=== PATIENT | female | born 1985 | race Caucasian/White ===

== ENCOUNTER 2017-06-30 10:09 | Emergency (ER) | payer SELFPAY ==
--- NOTE | 2017-06-30 10:26 | ER Document Report ---
ED Medical Screen (RME) - General Chief Complaint: Abdominal Pain Stated Complaint: ABDOMINAL PAIN Time Seen by Provider: 06/30/17 10:25 Notes: pt reports several months of intermittent abd pain, mainly in LLQ. also states she has "yeast" infection. only surgery is tubal, no chronic medical conditions. TRAVEL OUTSIDE OF THE [place] IN LAST 30 DAYS: No - Related Data Allergies/Adverse Reactions: acetaminophen [From Percocet] Allergy (Verified 06/30/17 10:16) oxycodone [From Percocet] Allergy (Verified 06/30/17 10:16) Past Medical History - Social History Frequency of alcohol use: Occasional Drug Abuse: None Renal/ Medical History: Denies: Hx Peritoneal Dialysis Physical Exam - Vital signs Vitals: Temp Pulse Resp BP Pulse Ox 98.7 F 97 16 128/90 H 98 06/30/17 10:16 06/30/17 10:16 06/30/17 10:16 06/30/17 10:16 06/30/17 10:16 Course - Vital Signs Vital signs: Temp Pulse Resp BP Pulse Ox 98.7 F 97 16 128/90 H 98 06/30/17 10:16 06/30/17 10:16 06/30/17 10:16 06/30/17 10:16 06/30/17 10:16
--- NOTE | 2017-06-30 10:50 | ER Document Report ---
ED GI/ - General Chief Complaint: Abdominal Pain Stated Complaint: ABDOMINAL PAIN Time Seen by Provider: 06/30/17 10:25 Notes: 31 yo female c/o intermittant LLQ pain for several months. denies dysuria. + thick white vaginal discharge with slight vaginal itch. no odor. no fever or back pain TRAVEL OUTSIDE OF THE [place] IN LAST 30 DAYS: No - HPI Patient complains to provider of: Pelvic pain Timing/Duration: Intermittent - Related Data Allergies/Adverse Reactions: acetaminophen [From Percocet] Allergy (Verified 06/30/17 10:16) oxycodone [From Percocet] Allergy (Verified 06/30/17 10:16) Past Medical History - General Information source: Patient - Social History Smoking Status: Current Every Day Smoker Frequency of alcohol use: Occasional Drug Abuse: None Family History: Reviewed & Not Pertinent Patient has suicidal ideation: No Patient has homicidal ideation: No - Medical History Medical History: Negative Renal/ Medical History: Denies: Hx Peritoneal Dialysis Review of Systems - Review of Systems Constitutional: No symptoms reported EENT: No symptoms reported Cardiovascular: No symptoms reported Respiratory: No symptoms reported Gastrointestinal: See HPI, Abdominal pain Genitourinary: No symptoms reported Female Genitourinary: No symptoms reported Musculoskeletal: No symptoms reported Skin: No symptoms reported Hematologic/Lymphatic: No symptoms reported Neurological/Psychological: No symptoms reported Physical Exam - Vital signs Vitals: Temp Pulse Resp BP Pulse Ox 98.7 F 97 16 128/90 H 98 06/30/17 10:16 06/30/17 10:16 06/30/17 10:16 06/30/17 10:16 06/30/17 10:16 Interpretation: Normal - General General appearance: Appears well, Alert - HEENT Head: Normocephalic, Atraumatic Eyes: Normal Pupils: PERRL - Respiratory Respiratory status: No respiratory distress Chest status: Nontender Breath sounds: Normal Chest palpation: Normal - Cardiovascular Rhythm: Regular Heart sounds: Normal auscultation Murmur: No - Abdominal Inspection: Normal Distension: No distension Bowel sounds: Normal Tenderness: Tender - LLQ tenderness. no guarding or rebound Organomegaly: No organomegaly - Back Back: Normal, Nontender - Extremities General upper extremity: Normal inspection, Nontender, Normal color, Normal ROM , Normal temperature General lower extremity: Normal inspection, Nontender, Normal color, Normal ROM , Normal temperature, Normal weight bearing. No: Damir's sign - Neurological Neuro grossly intact: Yes Cognition: Normal Orientation: AAOx4 [place] Coma Scale Eye Opening: Spontaneous Lam Coma Scale Verbal: Oriented [place] Coma Scale Motor: Obeys Commands Lam Coma Scale Total: 15 Speech: Normal Motor strength normal: LUE, RUE, LLE, RLE Sensory: Normal - Psychological Associated symptoms: Normal affect, Normal mood - Skin Skin Temperature: Warm Skin Moisture: Dry Skin Color: Normal Course - Vital Signs Vital signs: Temp Pulse Resp BP Pulse Ox 98.7 F 97 16 128/90 H 98 06/30/17 10:16 06/30/17 10:16 06/30/17 10:16 06/30/17 10:16 06/30/17 10:16 Discharge - Discharge Clinical Impression: Pelvic pain, Left lower quadrant pain Condition: Stable Disposition: HOME, SELF-CARE Instructions: Ovarian Cyst ([facility]), Ibuprofen (General) ([facility]), Vaginosis, Bacterial ([facility]), Antibiotic Therapy ([facility]), Vaginal Yeast Infection ([facility]) Additional Instructions: Your wet mount is showing Bacterial Vaginosis and yeast Take medications as prescribed Your history and physical is suspicious for ovarian cysts Follow up with [facility] for further evaluation and treatment Prescriptions: Fluconazole [Diflucan] 150 mg PO ONCE PRN #2 tablet PRN Reason: Ibuprofen [Motrin 800 Mg Tablet] 800 mg PO Q6H #20 tablet Metronidazole [Flagyl 500 mg Tablet] 500 mg PO BID #14 tablet Referrals: [facility] DEPT,[facility] [NO LOCAL MD] - Follow up as needed
[2017-06-30 11:23] LABS: APPEARANCE,URINE CLEAR; BILIRUBIN,URINE NEGATIVE (NEGATIVE); GLUCOSE, URINE NEGATIVE (NEGATIVE); KETONES,URINE NEGATIVE (NEGATIVE); LEUKOCYTE ESTERASE,URINE NEGATIVE (NEGATIVE); NITRITE,URINE NEGATIVE (NEGATIVE); PROTEIN,URINE NEGATIVE (NEGATIVE); URINE SPECIFIC GRAVITY 1.021; UROBILINOGEN,URINE NEGATIVE mg/dL (<2.0)
[2017-06-30 11:44] VITALS: BP 115/77
[2017-06-30 12:52] LABS: CHLAM PCR NOT DETECTED (NOT DETECT)
== END 2017-06-30 11:42 | disposition home or self-care (01) ==
LOC: ER 10:09
DX: R10.2 Pelvic and perineal pain (principal); R10.32 Left lower quadrant pain; R10.9 Unspecified abdominal pain; F17.200 Nicotine dependence, unspecified, uncomplicated
CPT/HCPCS: 81001; 81025; 87210; 87491; 87591; 99284

== ENCOUNTER 2018-02-22 10:44 | Emergency (ER) | payer SELFPAY ==
[2018-02-22 10:51] VITALS: BP 124/81
[2018-02-22] MEDS ORDERED: TETRACAINE HCL 0.5% OPH SOLN 2 ML OD ONE (11:01)
--- NOTE | 2018-02-22 11:02 | ER Document Report ---
HPI - HPI Patient complains to provider of: Itchy right eye Onset: Other - 3 weeks Onset/Duration: Persistent, Waxing and waning Pain Level: 1 Context: 32-year-old noncontact lens wear female complaining of itchy right eyelid for 3 weeks it is intermittent but persists. Sometimes the upper right eyelid swells after rubbing it Associated Symptoms: None Exacerbated by: Denies Relieved by: Denies - ROS ROS below otherwise negative: Yes Systems Reviewed and Negative: Yes All other systems reviewed and negative Past Medical History - General Information source: Patient - Social History Smoking Status: Never Smoker Frequency of alcohol use: None Drug Abuse: None Lives with: Family Family History: Reviewed & Not Pertinent - Medical History Medical History: Negative Renal/ Medical History: Denies: Hx Peritoneal Dialysis Surgical Hx: Negative Vertical Provider Document - CONSTITUTIONAL Agree With Documented VS: Yes Exam Limitations: No Limitations General Appearance: No Apparent Distress - INFECTION CONTROL TRAVEL OUTSIDE OF THE [place] IN LAST 30 DAYS: No - HEENT HEENT: Normal ENT Exam, Normocephalic, PERRLA. negative: Conjuctival Injection , Pharyngeal Erythema Notes: No fluoroscopy seen uptake, no conjunctival injection, no eyelid swelling. - NEURO Level of Consciousness: Awake, Alert - DERM Integumentary: No Rash Course - Vital Signs Vital signs: Temp Pulse Resp BP Pulse Ox 99.0 F 95 14 124/81 99 02/22/18 10:49 02/22/18 10:49 02/22/18 10:49 02/22/18 10:49 02/22/18 10:49 Discharge - Discharge Clinical Impression: Right eyelid pruritus Condition: Good Disposition: HOME, SELF-CARE Instructions: Conjunctivitis, Allergic Additional Instructions: See the raftsman if the eye symptoms persist Allergy eyedrops Return to the emergency room any swelling heat or fever in the area Prescriptions: Olopatadine HCl [Pataday] 1 drop OP DAILY #1 bottle Referrals: ASHELY BELLO MD [ACTIVE STAFF] - Follow up as needed
== END 2018-02-22 11:39 | disposition home or self-care (01) ==
LOC: ER 10:44
DX: L29.8 Other pruritus (principal)
CPT/HCPCS: 99283

== ENCOUNTER 2018-02-25 10:04 | Emergency (ER) | payer SELFPAY ==
[2018-02-25 10:11] VITALS: BP 130/84
--- NOTE | 2018-02-25 10:17 | ER Document Report ---
HPI - HPI Pain Level: 3 Notes: Patient is a 32-year-old female who presents to the ED complaining of continued intermittent right upper eyelid swelling 1-1/2 weeks. Patient states she was here 3 days ago and had an evaluation at that time and was diagnosed with a possible allergic issue and was prescribed allergy eyedrops, but could not afford the prescription so she came back to the emergency department. Patient states that her eyelid usually swells in the morning and solves by the afternoon. Patient states that she has not had any changes in her vision or blurriness. Patient states that on occasion she will have tearing without any purulence. She has not had any recent URI. She is eating and drinking without difficulties. No other concerns or complaints. No eye pain or sensation of foreign body. Denies any headache, fever, neck pain, eye redness, changes in vision/speech/mentation/hearing, URI, sore throat, chest pain, palpitations, syncope, cough, shortness of breath, wheeze, dyspnea, abdominal pain, nausea/ vomiting/diarrhea, urinary retention, dysuria, hematuria, or rash. - ROS Systems Reviewed and Negative: Yes All other systems reviewed and negative - CONSTITUTIONAL Constitutional: DENIES: Fever, Chills - EENT EENT: REPORTS: Eye problems - R eye swelling. DENIES: Sore Throat, Ear Pain - NEURO Neurology: DENIES: Headache, Weakness, Vision blurred, Dizzinesss / Vertigo - CARDIOVASCULAR Cardiovascular: DENIES: Chest pain - RESPIRATORY Respiratory: DENIES: Trouble Breathing, Coughing - GASTROINTESTINAL Gastrointestinal: DENIES: Abdominal Pain, Black / Bloody Stools - URINARY Urinary: DENIES: Dysuria, Urgency, Frequency - REPRODUCTIVE Reproductive: DENIES: :, Postmenopausal, Abnormal bleeding / discharge - MUSCULOSKELETAL Musculoskeletal: DENIES: Extremity pain Past Medical History - Social History Smoking Status: Current Every Day Smoker Family History: Reviewed & Not Pertinent Patient has suicidal ideation: No Patient has homicidal ideation: No Renal/ Medical History: Denies: Hx Peritoneal Dialysis Vertical Provider Document - CONSTITUTIONAL Agree With Documented VS: Yes Notes: PHYSICAL EXAMINATION: GENERAL: Well-appearing, well-nourished and in no acute distress. A&Ox4 HEAD: Atraumatic, normocephalic. EYES: Pupils equal round and reactive to light, extraocular movements intact, sclera anicteric, conjunctiva b/l w/o discharge or matting. Non-tender to palp of the globe and eye itself. + rt mild upper eyelid swelling/puffiness. + small ?stye inside upper lid rt. No other surrounding erythema or swelling noted. Visual acuity 20/20 b/l and in each eye (performed by myself at bedside with my own eye chart). Wood's lamp/flourescein: pt had performed 3 days ago, negative. no eye redness/ discharge on exam. ENT: EAC clear b/l. TM's intact b/l without erythema, fluid, or perforation. Nares patent and without discharge. oropharynx clear without exudates. No tonsilar hypertrophy or erythema. Moist mucous membranes. No sinus tenderness. Uvula midline. No palatine shift. No airway compromise. No drooling or hoarseness. NECK: Normal range of motion, supple without lymphadenopathy. No rigidity/ meningismus. LUNGS: Breath sounds clear to auscultation bilaterally and equal. No wheezes rales or rhonchi. HEART: Regular rate and rhythm without murmurs, rubs, gallops. Extremities: No cyanosis, clubbing, or edema b/l. Peripheral pulses 2+. Capillary refill less than 3 seconds. NEUROLOGICAL: Cranial nerves grossly intact. Normal speech, normal gait. Normal sensory, motor exams PSYCH: Normal mood, normal affect. SKIN: Warm, Dry, normal turgor, no rashes or lesions noted. - INFECTION CONTROL TRAVEL OUTSIDE OF THE [place] IN LAST 30 DAYS: No Course - Re-evaluation Re-evalutation: 02/25/18 10:24 Patient is an afebrile, well-hydrated, 32-year-old female presents to the ED with right upper eyelid swelling, suspect possible allergy with a possible very small stye. Vitals are acceptable. PE is otherwise unremarkable. No other labs or imaging warranted at this time based on H&P. Visual acuity is intact. Conjunctiva is noninjected and without discharge. She has no tenderness and no subjective pain. Low suspicion for any retained corneal or lid foreign body, deep space infection including orbital cellulitis/abscess, acute glaucoma, penetrating globe injury, retinal detachment, meningitis, sepsis, fracture, compartment syndrome. I will send her home with a prescription for Polytrim to use as directed. Conservative measures otherwise for symptoms with proper handwashing. Recheck with your PCM in 3-5 days. Schedule a f/u with Ophthalmology next week. Return to the ED with any worsening/concerning symptoms otherwise as reviewed in discharge. Patient is in agreement. - Vital Signs Vital signs: Temp Pulse Resp BP Pulse Ox 98.4 F 92 15 130/84 H 99 02/25/18 10:08 02/25/18 10:08 02/25/18 10:08 02/25/18 10:08 02/25/18 10:08 Discharge - Discharge Clinical Impression: Swelling of right eyelid Condition: Stable Disposition: HOME, SELF-CARE Instructions: Eyedrop Use ([facility]) Additional Instructions: keep eyes clean Take PO allergy medication as needed Avoid scratching/touching eyes Wash hands regularly Use eye drops as directed Maintain adequate fluid intake tylenol/ibuprofen as needed over the counter cold medication as needed for symptoms F/u: with your PCM in 3-5 days for a recheck Schedule a consult with Ophthalmology for further evaluation Return to the ED with any worsening symptoms and/or development of fever, headache, changes in vision, eye pain, worsening eye redness, redness around the eyes, purulent discharge, sore throat, facial swelling, neck pain/stiffness , chest pain, palpitations, syncope, shortness of breath, trouble breathing, abdominal pain, n/v/d, blood in stool/urine, dysuria, or other worsening symptoms that are concerning to you. Prescriptions: Polymyxin B Sulf/Trimethoprim [Polytrim Eye Drops] 1 drop OD Q3H #10 ml Forms: Elevated Blood Pressure, Smoking Cessation Education Referrals: ASHELY BELLO MD [ACTIVE STAFF] - Follow up in 3-5 days
== END 2018-02-25 10:22 | disposition home or self-care (01) ==
LOC: ER 10:04
DX: R22.0 Localized swelling, mass and lump, head (principal); F17.200 Nicotine dependence, unspecified, uncomplicated
CPT/HCPCS: 99283

== ENCOUNTER 2018-12-26 08:17 | Emergency (ER) | payer SELFPAY ==
[2018-12-26] MEDS ORDERED: KETOROLAC TROMETHAMINE 60 MG/2 ML SDV IM ONE (09:32)
--- NOTE | 2018-12-26 09:44 | ER Document Report ---
ED General - General Chief Complaint: Headache Stated Complaint: HEADACHE Time Seen by Provider: 12/26/18 09:26 TRAVEL OUTSIDE OF THE [place] IN LAST 30 DAYS: No - HPI Notes: Patient is a 33-year-old female that presents to the emergency department for chief complaint of headache and sinus congestion. Patient reports pressure in her face for the last 4 days. She states that it is throbbing in nature. It is worse when she is laying flat or bending forward. She reports a lot of sinus congestion and drainage as well. She has tried Mucinex at home which has given her some relief of the congestion. She is also tried Aleve and her last dose was at 1 AM. She states the Aleve does give her some relief but her symptoms have persisted. She reported blurry vision in triage but describes it as a photophobia making it difficult to see. She denies any double vision or lack of vision. She denies any fevers, chills, neck pain and stiffness, cough and shortness of breath. Her headache is gradually wo rsening over the last few days. Past Medical History: Negative Past Surgical History: Social History: Denies drugs alcohol and tobacco Family History: Reviewed and noncontributory for presenting illness Allergies: Reviewed, see documented allergy list. REVIEW OF SYSTEMS: CONSTITUTIONAL : No fever No chills No diaphoresis No recent illness EENT: No vision changes congestion No sore throat CARDIOVASCULAR: No chest pain No palpitations RESPIRATORY: No shortness of breath No cough No difficulty breathing GASTROINTESTINAL: No abdominal pain No nausea No vomiting No diarrhea GENITOURINARY: No dysuria No hematuria No difficulty urinating MUSCULOSKELETAL: No back pain No leg pain No arm pain SKIN: No rashes No lesions LYMPHATIC: No swollen, enlarged glands. NEUROLOGICAL: No lightheadedness headache No weakness No paresthesias PSYCHIATRIC: No anxiety No depression PHYSICAL EXAMINATION: Vital signs reviewed, nursing noted reviewed. GENERAL: Well-appearing, well-nourished and in no acute distress. HEAD: Atraumatic, normocephalic. EYES: Eyes appear normal, extraocular movements intact, sclera anicteric, conjunctiva are normal. ENT: Bilateral nasal mucosal edema, tenderness to percussion of frontal and maxillary sinuses, normal TMs bilaterally with clear middle ear effusions bilaterally. Nares patent, oropharynx clear without exudates. Moist mucous membranes. NECK: Normal range of motion, supple without lymphadenopathy LUNGS: Breath sounds clear to auscultation bilaterally and equal. No wheezes rales or rhonchi. HEART: Regular rate and rhythm without murmurs ABDOMEN: Soft, nontender, normoactive bowel sounds. No rebound, guarding, or rigidity. No masses appreciated. EXTREMITIES: Nontender, good range of motion, no pitting or edema. NEUROLOGICAL: No focal neurological deficits. Moves all extremities spontaneously Motor and sensory grossly intact on exam. PSYCH: Normal mood, normal affect. SKIN: Warm, Dry, normal turgor, no rashes or lesions noted on exposed skin - Related Data Allergies/Adverse Reactions: acetaminophen [From Percocet] Allergy (Verified 12/26/18 08:20) oxycodone [From Percocet] Allergy (Verified 12/26/18 08:20) Past Medical History - Social History Smoking Status: Current Every Day Smoker Chew tobacco use (# tins/day): No Frequency of alcohol use: Social Family History: Reviewed & Not Pertinent Patient has suicidal ideation: No Patient has homicidal ideation: No Renal/ Medical History: Denies: Hx Peritoneal Dialysis Physical Exam - Vital signs Vitals: Temp Pulse Resp BP Pulse Ox 98.1 F 86 16 132/89 H 97 12/26/18 08:32 12/26/18 08:32 12/26/18 08:32 12/26/18 08:32 12/26/18 08:32 Course - Re-evaluation Re-evalutation: 12/26/18 10:21 Vitals reviewed. Nursing notes reviewed. Patient has tenderness to percussion of her sinuses and pain consistent with sinus headache. Her symptoms have only been present for 4 days therefore antibiotics are not indicated. She will be started on Nasonex and was given Toradol in the ED for symptom medic management. She will follow with primary care for reevaluation in the next few days. - Vital Signs Vital signs: Temp Pulse Resp BP Pulse Ox 98.1 F 86 16 132/89 H 97 12/26/18 08:32 12/26/18 08:32 12/26/18 08:32 12/26/18 08:32 12/26/18 08:32 Discharge - Discharge Clinical Impression: Sinus headache Sinusitis Qualifiers: Sinusitis location: frontal Chronicity: acute Recurrence: non-recurrent Qualified Code(s): J01.10 - Acute frontal sinusitis, unspecified Condition: Stable Disposition: HOME, SELF-CARE Instructions: Toradol Injection ([facility]), Sinusitis ([facility]), Headache ([facility]) Additional Instructions: Please return to the emergency department if you have any worsening, or concern of your symptoms. Please return to the emergency department if you develop chest pain, difficulty breathing, severe abdominal pain, or ongoing vomiting. Please follow-up with your primary care physician in 2-3 days and any other recommended physicians. If prescribed, take all medications as directed. If you have any questions or concerns do not hesitate to return the emergency department for evaluation. Prescriptions: Mometasone Furoate [Nasonex] 2 spray NS Q12 14 Days #1 spray.pump Referrals: [facility] [Provider Group] - Follow up in 1 week
[2018-12-26 10:30] VITALS: BP 130/89
== END 2018-12-26 10:30 | disposition home or self-care (01) ==
LOC: ER 08:17
DX: R51 Headache (principal); J01.10 Acute frontal sinusitis, unspecified; R09.81 Nasal congestion; F17.200 Nicotine dependence, unspecified, uncomplicated; Z88.6 Allergy status to analgesic agent
CPT/HCPCS: 99283; 96372; J1885

== ENCOUNTER 2019-09-09 19:08 | Emergency (ER) | payer MEDICAID ==
[2019-09-09] MEDS ORDERED: ASPIRIN 81 MG TABLET, CHEWABLE PO ONE (19:23)
--- NOTE | 2019-09-09 19:25 | ER Document Report ---
ED Medical Screen (RME) - General Chief Complaint: Shortness Of Breath Stated Complaint: CHEST PAIN,SHORTNESS OF BREATH Time Seen by Provider: 09/09/19 19:18 Mode of Arrival: Ambulatory Information source: Patient Notes: This 33-year-old female with no past medical history presents emergency department with complaints of sharp chest pain to the center of her chest for the past 30-40 minutes. She also reports in between the sharp chest pain she will have a dull ache. Reports some shortness of breath. Denies fever nausea vomiting diarrhea. Denies history of cardiac disease. Denies recent trip. Denies , IV drug use, cocaine, red bull, energy drinks. Patient reports she was just at work when she started hurting. She reports that happened to her earlier this year and her doctor told her to come the emergency department if it happened again. She denies family history of cardiac disease at her age. Reports her father has some cardiac disease in his 60s. EKG shows sinus rhythm no ST elevation no T wave inversion. Patient speaking in clear sentences. Respiratory rate even unlabored. I have greeted and performed a rapid initial assessment of this patient. A com prehensive ED assessment and evaluation of the patient, analysis of test results and completion of the medical decision making process will be conducted by additional ED providers. Dictation of this chart was performed using voice recognition software; therefore, there may be some unintended grammatical errors. TRAVEL OUTSIDE OF THE [place] IN LAST 30 DAYS: No - Related Data Allergies/Adverse Reactions: acetaminophen [From Percocet] Allergy (Verified 12/26/18 08:20) oxycodone [From Percocet] Allergy (Verified 12/26/18 08:20) Past Medical History Renal/ Medical History: Denies: Hx Peritoneal Dialysis
[2019-09-09 19:26] VITALS: BP 145/102
[2019-09-09 19:55] LABS: ABSOLUTE BASOPHILS # (AUTO) 0.1 10^3/uL (0.0-0.2); ABSOLUTE EOSINOPHILS # (AUTO) 0.1 10^3/uL (0.0-0.6); ABSOLUTE LYMPHOCYTES (AUTO) 2.5 10^3/uL (0.5-4.7); ABSOLUTE MONOCYTES (AUTO) 0.4 10^3/uL (0.1-1.4); ABSOLUTE NEUT (AUTO) 3.3 10^3/uL (1.7-8.2); BASOPHILS % (AUTO) 1.4 % (0-2); EOSINOPHILS % (AUTO) 1.2 % (0-6); HEMATOCRIT 33.3 % (36.0-47.0); HEMOGLOBIN 10.5 g/dL (12.0-15.5); LYMPHOCYTES % (AUTO) 39.6 % (13-45); MEAN CORPUSCULAR HEMOGLOBIN 23.5 pg (27.0-33.4); MEAN CORPUSCULAR HGB CONC 31.4 g/dL (32.0-36.0); MEAN CORPUSCULAR VOLUME 75 fl (80-97); MONOCYTES % (AUTO) 6.2 % (3-13); PLATELET COUNT 310 10^3/uL (150-450); RED BLOOD COUNT 4.45 10^6/uL (3.72-5.28); RED CELL DISTRIBUTION WIDTH 17.8 % (11.5-14.0); SEGMENTED NEUTROPHILS % (AUTO) 51.6 % (42-78); TOTAL CELLS COUNTED % (AUTO) 100 %; WHITE BLOOD COUNT 6.3 10^3/uL (4.0-10.5)
[2019-09-09 20:00] LABS: APPEARANCE,URINE CLEAR; BILIRUBIN,URINE NEGATIVE (NEGATIVE); COLOR,URINE YELLOW; GLUCOSE, URINE NEGATIVE (NEGATIVE); KETONES,URINE NEGATIVE (NEGATIVE); LEUKOCYTE ESTERASE,URINE NEGATIVE (NEGATIVE); NITRITE,URINE NEGATIVE (NEGATIVE); PROTEIN,URINE NEGATIVE (NEGATIVE); URINE SPECIFIC GRAVITY 1.018; UROBILINOGEN,URINE NEGATIVE mg/dL (<2.0)
[2019-09-09 20:15] LABS: ALBUMIN 4.7 g/dL (3.5-5.0); ALKALINE PHOSPHATASE 69 U/L (38-126); ANION GAP 10 (5-19); ASPARTATE AMINO TRANSFERASE 25 U/L (14-36); BILIRUBIN,TOTAL 0.2 mg/dL (0.2-1.3); BLOOD UREA NITROGEN 10 mg/dL (7-20); CARBON DIOXIDE 24 mmol/L (22-30); CHLORIDE 105 mmol/L (98-107); CREATINE KINASE 127 U/L (30-135); GLUCOSE 109 mg/dL (75-110); POTASSIUM 3.7 mmol/L (3.6-5.0); TOTAL PROTEIN 8.1 g/dL (6.3-8.2)
--- NOTE | 2019-09-09 20:32 | RADIOLOGY REPORT (SQ) ---
EXAM DESCRIPTION: [facility]: XR CHEST 2 VIEWS Views: 2 CLINICAL HISTORY: 33 years Female, cp COMPARISON: None. FINDINGS: The lungs are clear. No pneumothorax or significant pleural effusion. Cardiomediastinal silhouette is within normal limits. Bony structures are unremarkable for age. IMPRESSION: 1. No acute cardiothoracic abnormality.
--- NOTE | 2019-09-09 21:58 | ER Document Report ---
ED General - General Chief Complaint: Chest Pain Stated Complaint: CHEST PAIN,SHORTNESS OF BREATH Time Seen by Provider: 09/09/19 19:18 Primary Care Provider: NIGHAT HERRERA MD [Primary Care Provider] - Follow up as needed Mode of Arrival: Ambulatory Information source: Patient Notes: 33-year-old woman presents to the emergency department with a history of chest tightness and discomfort which began while at work. States that she was operating a piece of equipment at work when she reached up to turn the operation off she began having tightness in her chest and symptoms continued for about 15 minutes. She denies any prior history of similar episodes and denies a history of hypertension, diabetes or known CAD. She denies radiation of the pain or diaphoresis, nausea or vomiting. She did complain of feeling somewhat short of breath at the time. She is a smoker approximately a pack of cigarettes per day and denies any illicit drugs. TRAVEL OUTSIDE OF THE [place] IN LAST 30 DAYS: No - Related Data Allergies/Adverse Reactions: acetaminophen [From Percocet] Allergy (Verified 12/26/18 08:20) oxycodone [From Percocet] Allergy (Verified 12/26/18 08:20) Past Medical History - General Information source: Patient - Social History Smoking Status: Current Every Day Smoker Chew tobacco use (# tins/day): No Frequency of alcohol use: Occasional Drug Abuse: None Family History: Reviewed & Not Pertinent Patient has suicidal ideation: No Patient has homicidal ideation: No Renal/ Medical History: Denies: Hx Peritoneal Dialysis Review of Systems - Review of Systems Notes: Constitutional: Negative for fever. HENT: Negative for sore throat. Eyes: Negative for visual changes. Cardiovascular: + chest pain. Respiratory: + shortness of breath. Gastrointestinal: Negative for abdominal pain, vomiting or diarrhea. Genitourinary: Negative for dysuria. Musculoskeletal: Negative for back pain. Skin: Negative for rash. Neurological: Negative for headaches, weakness or numbness. 10 point ROS negative except as marked above and in HPI. Physical Exam - Vital signs Vitals: Temp Pulse Resp BP Pulse Ox 98.5 F 96 17 142/103 H 100 09/09/19 19:23 09/09/19 19:23 09/09/19 19:23 09/09/19 19:23 09/09/19 19:23 - Notes Notes: PHYSICAL EXAMINATION: GENERAL: Well-appearing, well-nourished female in no acute distress HEAD: Atraumatic, normocephalic. EYES: sclera anicteric, conjunctiva are normal. ENT: Moist mucous membranes. NECK: Normal range of motion LUNGS: Clear no wheezes rales or rhonchi HEART: Regular rate and rhythm no murmur gallop or rub EXTREMITIES: no pitting or edema. No cyanosis. NEUROLOGICAL: No focal neurological deficits. Moves all extremities spontaneously and on command. PSYCH: Normal mood, normal affect. SKIN: Warm, Dry, normal turgor, no rashes or lesions noted. Course - Re-evaluation Re-evalutation: 09/09/19 21:57 Differential diagnosis Muscle spasm, esophageal spasm, reflux, electrolyte imbalance, infecti on,ischemic/vascular 09/09/19 22:17 Reviewed the patient's labs and x-ray revealed that there is no acute process. Electrocardiogram is also normal with no acute ST or T wave abnormalities. Symptomatically the patient has improved and will treat this as a musculoskeletal event. Patient is in agreement with this plan and will follow up with her primary care doctor as needed. - Vital Signs Vital signs: Temp Pulse Resp BP Pulse Ox 98.5 F 96 17 145/102 H 100 09/09/19 19:23 09/09/19 19:23 09/09/19 19:23 09/09/19 19:24 09/09/19 19:23 - Laboratory Result Diagrams: 09/09/19 19:37 09/09/19 19:37 Laboratory results interpreted by me: 09/09/19 19:37 Hgb 10.5 L Hct 33.3 L MCV 75 L MCH 23.5 L MCHC 31.4 L RDW 17.8 H - Diagnostic Test Radiology reviewed: Image reviewed, Reports reviewed - Chest x-ray: No acute infiltrate or effusion. - EKG Interpretation by Me EKG shows normal: Sinus rhythm - Rate 95, [place], Intervals, QRS Complexes Discharge - Discharge Clinical Impression: Non-cardiac chest pain, Muscle spasm Condition: Good Disposition: HOME, SELF-CARE Instructions: Chest Wall Pain ([facility]) Additional Instructions: Please take medication as prescribed Please follow-up with your primary care doctor as needed. Prescriptions: Baclofen [Baclofen 10 mg Tablet] 10 mg PO TID #30 tab Naproxen [Naprosyn] 500 mg PO BID #20 tablet Referrals: NIGHAT HERRERA MD [Primary Care Provider] - Follow up as needed
--- NOTE | 2019-09-10 01:15 | EKG REPORT ---
SEVERITY:- NORMAL ECG - SINUS RHYTHM : Confirmed by: Earnestine Bernard MD 10-Sep-2019 01:14:19
== END 2019-09-09 22:37 | disposition home or self-care (01) ==
LOC: ER 19:08
DX: R07.89 Other chest pain (principal); M62.838 Other muscle spasm; R06.02 Shortness of breath; F17.210 Nicotine dependence, cigarettes, uncomplicated
CPT/HCPCS: 36415; 71046; 80053; 81001; 81025; 82550; 84484; 85025; 93005; 93010; 99284